=== PATIENT | female | born 1975 | race Caucasian/White ===

== ENCOUNTER 2017-09-02 10:31 | Emergency (ER) | payer OTHER ==
[~2017-09-02] VITALS: Ht 174 cm; Wt 94.0 kg
[2017-09-02 10:37] VITALS: BP 163/88; PULSE 89; RESP 16; TEMP 99.2; O2SAT 98
--- NOTE | 2017-09-02 12:25 | PD ---
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 SHE HAS SINCE RELOCATED TO [place] FOR WORK AND NOW PT HAS NOTED THE SAME FINDING AGAIN. 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 PATIENT DENIES PAIN/FEVER/ABDPAIN/CP /N/V/D. NO ALLEVIATING/AGGRAVATING FACTORS PRESENT PFSH Past Medical History Medical History: Denies Significant Hx ?: Not LMP: 2-3 WEEKS AGO Past Surgical History Gynecologic Surgery: Yes (leep) Social History Alcohol Use: Yes ("a few times a week") Tobacco Use: Yes (1/2 ppd) Substance Use: No Allergies-Medications (Allergen,Severity, Reaction): Coded Allergies: hydrocortisone (Verified Allergy, Severe, BLISTERING, 09/02/17) adhesive (Verified Allergy, Intermediate, RASH, 09/02/17) bacitracin (Verified Allergy, Intermediate, BLISTERING, 09/02/17) polymyxin B (Verified Allergy, Intermediate, BLISTERING, 09/02/17) latex (Verified Allergy, Unknown, BLISTERING, 09/02/17) Uncoded Allergies: METALS (Allergy, Intermediate, RASH, 09/02/17) Reported Meds & Prescriptions Reported Meds & Active Scripts Active No Active Prescriptions or Reported Medications Review of Systems Except as stated in HPI: all other systems reviewed are Neg General / Constitutional: No: Fever Eyes: No: Visual changes HENT: No: Headaches Cardiovascular: No: Chest Pain or Discomfort Respiratory: No: Shortness of Breath Gastrointestinal: No: Abdominal Pain Genitourinary: No: Dysuria Musculoskeletal: No: Pain Skin: Positive Lesions (TO EXTERNAL LABIA) Neurologic: No: Weakness Psychiatric: No: Depression Endocrine: No: Polydipsia Hematologic/Lymphatic: No: Easy Bruising Physical Exam Narrative GENERAL: SKIN: Warm and dry. HEAD: Atraumatic. Normocephalic. EYES: Pupils equal and round. No scleral icterus. No injection or drainage. ENT: No nasal bleeding or discharge. Mucous membranes pink and moist. NECK: Trachea midline. No JVD. CARDIOVASCULAR: Regular rate and rhythm. RESPIRATORY: No accessory muscle use. Clear to auscultation. Breath sounds equal bilaterally. GASTROINTESTINAL: Abdomen soft, non-tender, nondistended. obstetrics gyn exam with RN at bedside, showed some condyloma lesion on vulva and labia majora, no abscess or cellulitis note MUSCULOSKELETAL: Extremities without clubbing, cyanosis, or edema. No obvious deformities. NEUROLOGICAL: Awake and alert. No obvious cranial nerve deficits. Motor grossly within normal limits. Five out of 5 muscle strength in the arms and legs. Normal speech. PSYCHIATRIC: Appropriate mood and affect; insight and judgment normal. Data Data Last Documented VS Vital Signs Date Time Temp Pulse Resp B/P (MAP) Pulse Ox O2 Delivery O2 Flow Rate FiO2 09/02/17 10:37 99.2 89 16 163/88 (113) 98 Orders Orders Ed Discharge Order (09/02/17 12:25) [facility] Medical Decision Making Medical Screen Exam Complete: Yes Emergency Medical Condition: Yes Medical Record Reviewed: Yes Differential Diagnosis ABSCESS V CELLULITIS V CONDYLOMA Narrative Course ON EXAM CONDYLOMA NOTED, PT STATES SHE HAS HAD PREVIOUS HISTORY OF IT AND BECAUSE OF IT HAD A LEEP PROCEDURE IN [place]. SHE NOW LIVES HERE AND HAS NOT FOUND A CASH CLERK YET. Diagnosis Primary Impression: Condylomata malena of vulva Referrals: Bernie Bunn MD TO ESTABLISH CARE WITH CASH CLERK Scripts No Active Prescriptions or Reported Meds Disposition: 01 DISCHARGE HOME Condition: Stable Thompson Snow MD Sep 02, 2017 12:24
== END 2017-09-02 12:38 | disposition home or self-care (01) ==
LOC: PHED 10:31
DX: A63.0 Anogenital (venereal) warts (principal)
CPT/HCPCS: 99282